=== PATIENT | female | born 1990 | race Asian ===

== ENCOUNTER 2016-11-08 19:46 | Emergency (ER) | payer OTHER ==
[2016-11-08 20:03] VITALS: BP 124/80; PULSE 67; TEMP 98; BMI 26.6
--- NOTE | 2016-11-08 21:31 | PDOC ---
History of Present Illness - General Chief Complaint: Eye Problem Stated Complaint: EYE PROBLEM Time Seen by Provider: 11/08/16 21:08 History Source: Patient - History of Present Illness Timing/Duration: other (yesterday) Severity: mild Associated Symptoms: denies: headaches Past History - Past Medical History Allergies/Adverse Reactions: Allergies Allergy/AdvReac Type Severity Reaction Status Date / Time No Known Allergies Allergy Verified 11/08/16 19:57 Home Medications: Ambulatory Orders NK [No Known Home Medication] 11/17/15 - Surgical History Appendectomy: Yes - Psycho/Social/Smoking Cessation Hx Anxiety: No Suicidal Ideation: No Smoking History: Never smoked Hx Alcohol Use: No Drug/Substance Use Hx: No Substance Use Type: None Review of Systems - Review of Systems HEENTM: No: Eye Pain, Blurred Vision, Tearing *Physical Exam - Vital Signs Last Vital Signs Temp Pulse Resp BP Pulse Ox 98 F 67 16 124/80 98 11/08/16 19:57 11/08/16 19:57 11/08/16 19:57 11/08/16 19:57 11/08/16 19:57 - Physical Exam General Appearance: Yes: Appropriately Dressed. No: Apparent Distress HEENT: positive: Normal Voice, Other (contusion to lower lid of R eye w/ small area of subcinj hemorrhage to lateral cathus of R eye, no fb on lid eversion adn no uptake on patrick lamp, EOMI, no facial swelling/crepitus/stepoffs). negative: Scleral Icterus (R), Scleral Icterus (L) Respiratory/Chest: negative: Respiratory Distress Integumentary: positive: Dry, Warm Neurologic: positive: Fully Oriented, Alert, Normal Mood/Affect Medical Decision Making - Medical Decision Making 11/08/16 21:28 26-year-old female, no significant history, here with right eye injury after basketball hit patient in the face yesterday. No significant eye pain, photophobia, tearing, or blurry vision. See exam Minor eye injury +contusion to lower lid w/ minimal subconj hemorrhage, no uptake on slit lamp No e/o serious injuries, i.e blow out fx, etc -Dc w/ reassurance 11/08/16 21:31 *DC/Admit/Observation/Transfer Diagnosis at time of Disposition: Contusion, eyelid Qualifiers: Encounter type: initial encounter Laterality: right Qualified Code(s): S00.11XA - Contusion of right eyelid and periocular area, initial encounter Subconjunctival hemorrhage Qualifiers: Laterality: right Qualified Code(s): H11.31 - Conjunctival hemorrhage, right eye - Discharge Dispostion Disposition: HOME Condition at time of disposition: Good - Patient Instructions Printed Discharge Instructions: DI for Subconjunctival Hemorrhage
== END 2016-11-08 21:29 | disposition home or self-care (01) ==
LOC: JERFT 19:46 → JER 19:46 → JERFT 21:29
DX: S00.11XA Contusion of right eyelid and periocular area, initial encounter (principal); H11.31 Conjunctival hemorrhage, right eye; W21.05XA Struck by basketball, initial encounter; Y93.89 Activity, other specified; Y92.89 Other specified places as the place of occurrence of the external cause
CPT/HCPCS: 99281-25

== ENCOUNTER → 2016-12-09 | Day surgery (SDC) | payer OTHER | END | disposition home or self-care (01) | LOC: JRADIR 10:50 | PROVIDERS: ATTEND Obstetrics & Gynecology | PROC: BU08YZZ Plain Radiography of Uterus and Fallopian Tubes using Other Contrast (ICD-10-PCS; principal; 2016-12-09) | DX: N97.9 Female infertility, unspecified (principal); N92.6 Irregular menstruation, unspecified | CPT/HCPCS: 58340; 74740-TC; 76000-TC; 84703; Q9967 ==

== ENCOUNTER 2019-08-01 20:44 | Emergency (ER) | payer OTHER ==
--- NOTE | 2019-08-01 21:55 | PDOC ---
Rapid Medical Evaluation Time Seen by Provider: 08/01/19 21:49 Medical Evaluation: Allergies Allergy/AdvReac Type Severity Reaction Status Date / Time No Known Allergies Allergy Verified 11/08/16 19:57 08/01/19 21:50 Pt presents for evaluation of vaginal bleeding starting today. She notes there are small drops of bright red blood after she pees. Also endorses dysuria and frequency. Exam: deferred to provider Orders: labs, urine TVUS Pt to proceed to the ER for further evaluation Discharge Disposition - Diagnosis Vaginal bleeding affecting early - Referrals - Patient Instructions - Post Discharge Activity
[2019-08-01 21:59] VITALS: BP 120/63; PULSE 75; TEMP 97.4; BMI 31.3
--- NOTE | 2019-08-01 22:46 | PDOC ---
Attending Attestation - Resident Resident Name: BonifacioJess - ED Attending Attestation I have performed the following: I have examined & evaluated the patient, The case was reviewed & discussed with the resident, I agree w/resident's findings & plan - HPI HPI: 08/02/19 01:14 see resident hpi - Physicial Exam PE: 08/02/19 01:14 see resident exam - Medical Decision Making 08/02/19 01:15 29-year-old gravid female with a drop of blood noted from vaginal area Ultrasound shows a viable 7-8-week IUP Exam consistent with candidal vaginitis Will DC on topical Mycelex, patient states that she would like to go home, she is sure that her blood type is O+ Type and screen has been sent anyway for documentation
--- NOTE | 2019-08-01 23:04 | PDOC ---
History of Present Illness - General Chief Complaint: Hematuria Stated Complaint: 9 WK MD/VAGINAL BLEEDING Time Seen by Provider: 08/01/19 21:49 - History of Present Illness Initial Comments: Melani Patterson is a 29yo woman with a PMH of irregular menstruation, currently 9wks by LMP (06/02/19) who presents reporting that she saw blood while urinating today. She has not had any continued bleeding and has not had any spotting previously. She additionally reports increased vaginal discharge, vaginal itching, and burning with urination. Ms Adame endorses mild low back soreness and occasional low abdominal cramping, but this has not changed in intensity, quality, or frequency today. She states that her was confirmed by her PMD, and she has an appointment with Dr Aleman set up for next week. Past History - Past Medical History Allergies/Adverse Reactions: Allergies Allergy/AdvReac Type Severity Reaction Status Date / Time No Known Allergies Allergy Verified 11/08/16 19:57 Home Medications: Ambulatory Orders Miconazole Nitrate [Monistat-7] 100 mg PV HS #7 supp.vag 08/02/19 COPD: No - Surgical History Appendectomy: Yes - Psycho Social/Smoking Cessation Hx Smoking History: Never smoked Hx Alcohol Use: No Drug/Substance Use Hx: No Substance Use Type: None Review of Systems - Review of Systems Comments:: General: No fevers, no chills, no weight or appetite change, no malaise HEENT: No changes in vision, no changes in hearing, no congestion, no sore throat CV: No chest pain, no palpitations, no LE edema Pulm: No SOB, no cough, no wheezing GI: No nausea or vomiting, no change in bowel habits, no melena : See HPI Musc: No back pain, no joint swelling, no recent injury Skin: No rash, no lesions, no erythema Endo: No excessive thirst, no heat/cold intolerance Heme: No unusual bruising or bleeding, no swollen glands Neuro: No syncope, no numbness/tingling, no focal weakness Vasc: No claudication Psych: No recent change in mood, no SI or HI *Physical Exam - Vital Signs Last Vital Signs Temp Pulse Resp BP Pulse Ox 97.4 F L 75 18 120/63 100 08/01/19 21:52 08/01/19 21:52 08/01/19 21:52 08/01/19 21:52 08/01/19 21:52 - Physical Exam General: Comfortable, no acute distress HEENT: PERRL, EOMI, MMM, voice normal, normal neck ROM Cards: RRR, no murmur appreciated Pulm: Comfortable on room air, clear to auscultation bilaterally Abd: Soft, nontender, nondistended : Normal external genitalia. No bleeding or lesions noted. Thick white discharge in vaginal canal, no bleeding appreciated. No lesions or abrasions. No CMT or adnexal tenderness. Os closed. Ext: Atraumatic. No LE edema. ROM intact. WWP Skin: Normal color, no rashes or lesions Neuro: A&Ox3, CN grossly intact, normal speech, motor/sensory grossly intact and symmetric Psych: Mood appropriate to situation ED Treatment Course - LABORATORY CBC & Chemistry Diagram: 08/01/19 23:30 08/01/19 23:30 Medical Decision Making - Medical Decision Making 08/01/19 23:03 Melani Patterson is a 29yo woman with a PMH of irregular menstruation, currently 9wks by LMP (06/02/19) who presents with vaginal spotting today when urinating, vaginal discharge, itching, and burning with urination. - Ddx includes normal , threatened v inevitable v complete , UTI, yeast infection v BV v other vaginal infection - CBC, CMP, bHCG, T&S, UA, UCx - TVUS 08/02/19 00:27 - US completed. Shows live IUP measuring 7w5d by CRL, FHR 165. Official read pending - UA negative for UTI - Will treat for yeast infection - Remainder of labs not resulted 08/02/19 01:06 - Pt requesting to be discharged home. States blood type is O+ - Will discharge home, but will verify blood type when resulted. Pt understands that she may be called to come back to the ED for rhogam if rh negative. She will follow up with OB next week. Discussed with Dr Yuni Valdovinos PGY2 Discharge - Discharge Information Problems reviewed: Yes Clinical Impression/Diagnosis: Vaginal bleeding affecting early Condition: Stable Disposition: HOME - Admission No - Additional Discharge Information Prescriptions: Miconazole Nitrate [Monistat-7] 100 mg PV HS #7 supp.vag - Follow up/Referral Referrals: Maine Aleman MD [Staff Physician] - - Patient Discharge Instructions Patient Printed Discharge Instructions: DI for Vaginal Bleeding During , DI for -- Discomforts and Remedies Additional Instructions: Discharge Instructions: You were seen in the emergency department for vaginal bleeding during . You had blood tests and an ultrasound. Your ultrasound showed a normal measuring 7 weeks 5 days. You were diagnosed with a yeast infection and prescribed a topical medication. Home Care: - Take vitamins daily - Use the topical cream for your yeast infection. It should be used for 7 days as directed - You may use 650mg acetaminophen (Tylenol) every 6-8 hours as needed for pain. - Follow up with Dr Aleman as scheduled - Seek immediate medical care for worsening symptoms, heavy vaginal bleeding, severe abdominal or back pain, difficulty breathing, or any other medical emergency. - Post Discharge Activity
[2019-08-01 23:58] LABS: PH,URINE 5.5 (5.0-8.0); URINE APPEARANCE CLEAR; URINE BILIRUBIN NEGATIVE (NEGATIVE); URINE COLOR YELLOW; URINE GLUCOSE (UA) NEGATIVE (NEGATIVE); URINE KETONE NEGATIVE (NEGATIVE); URINE LEUK ESTERASE NEGATIVE (NEGATIVE); URINE NITRITE NEGATIVE (NEGATIVE); URINE PROTEIN NEGATIVE (NEGATIVE); URINE UROBILINOGEN 0.2 mg/dL (0.2-1.0)
[2019-08-02 00:36] LABS: BASO % 0.9 % (0-2.0); EOS % 1.1 % (0-4.5); HEMATOCRIT 35.5 % (32.4-45.2); HEMOGLOBIN 11.9 GM/dL (10.7-15.3); LYMPH % 29.3 % (8-40); MCH 29.1 pg (25.7-33.7); MCHC 33.4 g/dl (32.0-36.0); MEAN CELL VOLUME 87.1 fl (80-96); MEAN PLT VOLUME 9.3 fl (7.5-11.1); MONO % 7.2 % (3.8-10.2); NEUT % 61.5 % (42.8-82.8); PLATELET COUNT 309 K/MM3 (134-434); RBC 4.08 M/mm3 (3.60-5.2); RDW 12.6 % (11.6-15.6); WHITE BLOOD COUNT 13.5 K/mm3 (4.0-10.0)
[2019-08-02 01:13] LABS: ALBUMIN 3.7 g/dl (3.4-5.0); BILIRUBIN,TOTAL 0.5 mg/dL (0.2-1); BLOOD UREA NITROGEN 6.9 mg/dL (7-18); CALCIUM 9.2 mg/dL (8.5-10.1); CREATININE 0.5 mg/dL (0.55-1.3); POTASSIUM 4.3 mmol/L (3.5-5.1); TOT PROT 7.4 g/dl (6.4-8.2)
== END 2019-08-02 01:15 | disposition home or self-care (01) ==
LOC: JER 20:44
DX: O26.891 Other specified pregnancy related conditions, first trimester (principal); Z3A.09 9 weeks gestation of pregnancy; N93.9 Abnormal uterine and vaginal bleeding, unspecified
CPT/HCPCS: 36415; 76817-TC; 80053; 81003; 84702; 85025; 86850; 86900; 86901; 87086; 99283-25

== ENCOUNTER 2020-03-05 08:30 | Inpatient (IN) | payer OTHER ==
[2020-03-05 09:55] VITALS: BMI 37.8
[2020-03-05] MEDS ORDERED: ELECTROLYTE-148 SOLN 1,000 ML IV SCH (10:00)
--- NOTE | 2020-03-05 11:07 | HP ---
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: Alzheimer's, CVA, Dementia, Migraine, Multiple Sclerosis, Peripheral Neuropathy, Parkinson's, Seizure, Syncope, TIA, Vertigo, Other Cardiovascular: No: AFIB, Aneurysm, Aortic Insufficiency, Aortic Stenosis, CAD, CHF, Deep Vein Thrombosis, HTN, Hyperlipdemia, MD, Mitral Insufficiency, Mitral Stenosis, Murmur, Pulmonary Hypertension, Other Pulmonary: No: Asthma, Bronchitis, Cancer, COPD, O2 Dependent, Pneumonia, Previously Intubated, Pulmonary Embolus, Pulmonary Fibrosis, Sleep Apnea, Other Gastrointestinal: No: Ascites, Cancer, Constipation, Crohn's Disease, Diverticulitis, Diverticulosis, Esophageal Varices, Gastritis, GERD, GI Bleed, Hemorrhoids, Hiatal Hernia, Inflamatory Bowel Disease, Irritable Bowel Disease, Pancreatitis, Peptic Ulcer Disease, Ulcerative Colitis, Other Hepatobiliary: No: Cirrhosis, Cholelithiasis, Cholecystitis, Choledocholithiasis, Hepatitis A, Hepatitis B, Hepatitis C, Other Renal/: No: Renal Failure, Renal Inusuff, BPH, Cancer, Hematuria, Hemodialysis, Neurogenic Bladder, Renal Calculi, UTI, Other Reproductive: No: Ectopic , Endometriosis, Fibroids, PID, Polycystic Ovary Syndrome, Postmenopausal, Other ...: 1 ...Para: 0 ...Term: 0 ...: 0 ...Spon : 0 ...Induced : 0 ...Living Children: 0 ...Multiple Gestation: 0 ...LMP: 05/31/19 ... Weeks Gestation by Dates: 39.6 ...EDC by Dates: 03/06/20 ...EDC by Sono: 03/12/20 Heme/Onc: No: Anemia, B12 Deficiency, Bleeding Disorder, Cancer, Current Chemotherapy, Current Radiation Therapy, Hemochromatosis, Hypercoaguable State, Myeloproliferative Synd, Sickle Cell Disease, Sickle Cell Trait, Thrombocytopenia, Other Infectious Disease: No: AIDS, C-Diff, Herpes Zoster, HIV, MRSA, STD's, Tuberculosis, VREF, Other Psych: No: Addictions, Anxiety, Bipolar, Depression, Panic, Psychosis, Schizophrenia, Other Musculoskeletal: No: Bursitis, Chronic low back pain, Hemiparesis, Hemiplegia, Osteoarthritis, Paraplegia, Other Rheumatology: No: Fibromyalgia, Gout, Lupus, Rheumatoid Arthritis, Sarcoidosis, Vasculitis, Other ENT: No: Allergic Rhinitis, Sinusitis, Other Endocrine: No: Houston's Disease, Maryann's Disease, Diabetes Insipidus, Diabetes Mellitus, Hyperparathyroidism, Hyperthyroidism, Hypothyroidism, Osteopenia, SIADH, Other Dermatology: No: Basal Cell, Cellulitis, Eczema, Melanoma, Psoriasis, Squamous Cell, Other - Past Surgical History Past Surgical History: Yes: Appendectomy Hx Myomectomy: No Hx Transabdominal Cerclage: No - Smoking History Smoking history: Never smoked Have you smoked in the past 12 months: No - Alcohol/Substance Use Hx Alcohol Use: No Home Medications - Allergies Allergies/Adverse Reactions: Allergies Allergy/AdvReac Type Severity Reaction Status Date / Time No Known Allergies Allergy Verified 11/08/16 19:57 - Home Medications Home Medications: Ambulatory Orders Miconazole Nitrate [Monistat-7] 100 mg PV HS #7 supp.vag 08/02/19 Home Medications (free text): PNV. Insulin Family Medical History Family History: Unremarkable Review of Systems - Review of Systems Constitutional: reports: No Symptoms Eyes: reports: No Symptoms HENT: reports: No Symptoms Neck: reports: No Symptoms Cardiovascular: reports: No Symptoms Respiratory: reports: No Symptoms Gastrointestinal: reports: No Symptoms Genitourinary: reports: No Symptoms Breasts: reports: No Symptoms Reported Musculoskeletal: reports: No Symptoms Integumentary: reports: No Symptoms Neurological: reports: No Symptoms Endocrine: reports: No Symptoms Hematology/Lymphatic: reports: No Symptoms Psychiatric: reports: No Symptoms Physical Exam - Maternity Vital Signs: Vital Signs Temperature 98.7 F 03/05/20 09:37 Pulse Rate 93 H 03/05/20 09:37 Respiratory Rate 20 03/05/20 09:37 Blood Pressure 128/75 03/05/20 09:37 O2 Sat by Pulse Oximetry (%) Constitutional: Yes: No Distress HENT: Yes: Atraumatic Neck: Yes: Supple Cardiovascular: Yes: Regular Rate and Rhythm - Abdominal Exam/OB Number of Fetuses: Single Presentation: Vertex Contractions: No Regularity: Irritability Monitor Mode: External Heart Rate (range): 125 Category: I Accelerations: Uniform Decelerations: None - Vaginal Exam/OB Vaginal Bleeding: No Speculum Exam: No Dilatation (cm): 1 Effacement (%): 80 Amniotic Membrane Status: Intact Presentation: Vertex/Position (sutures palpated, cervical balloon place appropriately (60/40)ml) Station: -3 - Physical Exam Musculoskeletal: Yes: WNL Extremities: Yes: WNL Edema: Yes Edema: LLE: 1+, RLE: 1+ Integumentary: Yes: WNL Deep Tendon Reflex Grade: Normal +2 ...Motor Strength: WNL Psychiatric: Yes: Alert, Oriented Imaging - Results Ultrasound: Report Reviewed Assessment/Plan 29 y/o G1 @ 39.0wks presenting for IOL due to A2GDM and suspected IUGR, FHT is reassuring, favorable cervix, GBS +. Patient was counseled regarding IOL including possible risks and complications. All questions answered and informed consent obtained -Continuous monitoring -Consider pitocin 1-2 hours following cervical linares pending contractions pattern -GBS prophylaxis once in labor -FSq6hr
[2020-03-05] MEDS ORDERED: AMPICILLIN - 2 GM in SODIUM CHLORIDE 100 ML IVPB ONE (11:12)
[2020-03-05 11:28] LABS: BASO % 0.4 % (0-2.0); EOS % 0.6 % (0-4.5); HEMATOCRIT 31.6 % (32.4-45.2); HEMOGLOBIN 10.8 GM/dL (10.7-15.3); INR 0.89 (0.83-1.09); LYMPH % 15.8 % (8-40); MCH 28.9 pg (25.7-33.7); MCHC 34.1 g/dl (32.0-36.0); MEAN CELL VOLUME 84.8 fl (80-96); MEAN PLT VOLUME 8.5 fl (7.5-11.1); MONO % 6.9 % (3.8-10.2); NEUT % 76.3 % (42.8-82.8); PLATELET COUNT 241 K/MM3 (134-434); PROTHROMBIN TIME (PATIENT) 10.5 SEC (9.7-13.0); RBC 3.73 M/mm3 (3.60-5.2); RDW 16.1 % (11.6-15.6); WHITE BLOOD COUNT 10.2 K/mm3 (4.0-10.0)
[2020-03-05 11:31] LABS: ACTIVATED PTT 28.4 SECONDS (25.2-36.5)
[2020-03-05 11:48] LABS: CALCIUM 9.1 mg/dL (8.5-10.1); CREATININE 0.5 mg/dL (0.55-1.3); POTASSIUM 4.1 mmol/L (3.5-5.1)
[2020-03-05] MEDS ORDERED: OXYTOCIN 30 UNITS in 0.9% NS 30 UNIT/500 ML INFUS.BAG IVPB ONE (11:54)
[2020-03-05] MEDS ORDERED: OXYTOCIN 30 UNITS in 0.9% NS 30 UNIT/500 ML INFUS.BAG IVPB SCH (12:00)
[2020-03-05] MEDS ORDERED: AMPICILLIN SODIUM 2 GM VIAL ONE (14:08)
--- NOTE | 2020-03-05 14:27 | PN ---
Progress Note, Labor Vaginal Exam #1 Labor Exam Date: 03/05/20 Labor Exam Time: 14:26 Heart Rate (range): Cat I Dilatation: 4-5 Effacement (%): 90 Presentation: Vertex/Position Station: -3 Remarks: AROM, clears IUPC placed Start Amp Continue pitocin Anticipate Chris Aleman MD
[2020-03-05] MEDS ORDERED: PCA PUMP NR ONE ×2 (17:51→21:25)
[2020-03-05] MEDS ORDERED: FENTANYL/BUPIVACAINE/NS/PF - PCEA - 50 ML DISP.SYRIN EP ONE ×2 (17:52→21:24)
[2020-03-05] MEDS ORDERED: AMPICILLIN SODIUM 1 GM VIAL ONE ×2 (18:01→22:54)
[2020-03-05] MEDS ORDERED: NALOXONE HCL 0.4 MG/ML VIAL IVPUSH PRN (18:30)
[2020-03-05] MEDS ORDERED: FENTANYL/BUPIVACAINE/NS/PF - PCEA - 50 ML DISP.SYRIN EP SCH (18:30)
[2020-03-05] MEDS: AMPICILLIN - 1 GM in SODIUM CHLORIDE 100 ML IVPB SCH ×2 (18:39→22:00)
--- NOTE | 2020-03-05 19:05 | PN ---
Progress Note, Labor Vaginal Exam #2 Labor Exam Date: 03/05/20 Labor Exam Time: 18:00 Heart Rate (range): Cat I Dilatation: 5 Effacement (%): 90 Amniotic Membrane Status: Ruptured Presentation: Vertex/Position Station: -2 Remarks: Unchanged Will cont to increase pitocin Epidural prn Chris Aleman MD
--- NOTE | 2020-03-05 20:40 | PN ---
Progress Note, Labor Vaginal Exam #3 Labor Exam Date: 03/05/20 Labor Exam Time: 20:39 Heart Rate (range): Cat I Dilatation: 6 Effacement (%): 100 Amniotic Membrane Status: Ruptured Presentation: Vertex/Position Station: -1 Remarks: Feeling pressure Some cervical change, good descent Continue pitocin Anticipate Chris Aleman MD
--- NOTE | 2020-03-05 22:33 | PN ---
Progress Note, Labor Vaginal Exam #4 Labor Exam Date: 03/05/20 Labor Exam Time: 22:15 Heart Rate (range): Cat I Dilatation: 9 Effacement (%): 100 Amniotic Membrane Status: Ruptured Presentation: Vertex/Position Station: 0 Remarks: Pt feeling pressure Good cervical change Anticipate Chris Aleman MD
--- NOTE | 2020-03-06 00:10 | PN ---
Progress Note, Labor Vaginal Exam #4 Labor Exam Date: 03/06/20 Labor Exam Time: 00:09 Heart Rate (range): Cat I Dilatation: 10 Effacement (%): 100 Amniotic Membrane Status: Ruptured Presentation: Vertex/Position Station: 0 Remarks: Complete Passive descent Start pushing when 1+ Anticipate Chris Aleman MD
[2020-03-06] MEDS ORDERED: FENTANYL/BUPIVACAINE/NS/PF - PCEA - 50 ML DISP.SYRIN EP ONE (00:44)
[2020-03-06] MEDS: AMPICILLIN - 1 GM in SODIUM CHLORIDE 100 ML IVPB SCH ×2 (02:00→10:05)
--- NOTE | 2020-03-06 02:05 | PN ---
Progress Note, Labor Vaginal Exam #6 Labor Exam Date: 03/06/20 Labor Exam Time: 02:05 Heart Rate (range): Cat I Dilatation: 10 Effacement (%): 100 Amniotic Membrane Status: Ruptured Presentation: Vertex/Position Station: +1 Remarks: Start pushing Anticipate RONEL Aleman MD
[2020-03-06] MEDS ORDERED: AMPICILLIN SODIUM 1 GM VIAL ONE (02:21)
[2020-03-06] MEDS ORDERED: BENZOCAINE 20% 57 GM BOTTLE TP PRN (05:14)
[2020-03-06] MEDS ORDERED: BISACODYL 10 MG SUPP.RECT RC PRN (05:14)
[2020-03-06] MEDS ORDERED: METHYLERGONOVINE MALEATE 0.2 MG/1 ML AMP IM PRN (05:14)
[2020-03-06] MEDS ORDERED: BENZOCAINE 28 GM HEMORRHOIDAL OINTMENT TP PRN (05:14)
[2020-03-06] MEDS ORDERED: WITCH HAZEL 50% (TUCKS) 40 PAD/JAR PAD TP PRN (05:14)
--- NOTE | 2020-03-06 05:14 | PN ---
Delivery - Delivery Vaginal Delivery: Vacuum Assist Type of Anesthesia: Local, Epidural Episiotomy/Laceration: Midline, 2nd degree EBL (cc): 250 Delivery, Single - Stages of Labor Placenta: Yes: Spontaneous - Condition of Infant Reliability Manager/Dietitian Teacher Present: Yes Gender: Male Position: Right, OA - [place] Feeding Plan Initial Plan: Exclusive throughout hospitalization Remarks - Remarks Remarks: Pt pushing for roughly 3 hours. Reporting fatigue and inability to continue further. SVE: C/C/3+, SHERRIE position. Kiwi vacuum applied after risks reviewed, pressure applied and with maternal efforts and two pushes, . Vacuum popped off. Not replaced. Mother pushed to deliver VMI from SHERRIE position over midline 2nd degree episiotomy. Spontaneous delivery of anterior shoulder and body. No nuchal. No meconium. placed on mother's abdomen, cord clamped and cut by . handed off to NICU staff. Weight pending and Apgars 8/9. Spontaneous delivery of intact placenta with 3VC. Fundus firm. Perineum inspected, midline episiotomy repaired with 3-0 chromic after additional 1% lidocaine injected. Hemostasis noted. Mother doing well. EBL 250ml. Maine Aleman MD
[2020-03-06] MEDS ORDERED: OXYTOCIN 20 UNITS in 0.9% NS 20 UNIT/1,000 ML INFUS.BAG IV SCH (05:15)
[2020-03-06] MEDS ORDERED: OXYTOCIN 20 UNITS in 0.9% NS 20 UNIT/1,000 ML INFUS.BAG IV ONE (06:03)
[2020-03-06] MEDS: IBUPROFEN 600 MG TABLET (FP) PO PRN ×2 (07:20→21:45)
[2020-03-06] MEDS ORDERED: IBUPROFEN 600 MG TABLET (FP) PO ONE (07:22)
[2020-03-06] MEDS: PRENATAL VITAMINS W/ FOLIC ACID TABLET (FP) PO SCH (10:07)
[2020-03-06] MEDS: FERROUS SO4 325 MG TABLET (FP) PO SCH ×3 (10:07→17:58)
[2020-03-06] MEDS: ACETAMINOPHEN 325 MG TABLET (FP) PO PRN (21:44)
[2020-03-07] MEDS ORDERED: MAG HYDROX/AL HYDROX/SIMETH 30 ML UNIT-DOSE CUP PO PRN (00:03)
--- NOTE | 2020-03-07 06:47 | DS ---
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 Vital Signs: Vital Signs Temperature 97.8 F 03/07/20 06:00 Pulse Rate 103 H 03/07/20 06:00 Respiratory Rate 18 03/07/20 06:00 Blood Pressure 130/78 03/07/20 06:00 O2 Sat by Pulse Oximetry (%) 98 03/06/20 02:45 Constitutional: Yes: Well Nourished, No Distress, Calm Eyes: Yes: WNL, Conjunctiva Clear, EOM Intact HENT: Yes: WNL, Atraumatic, Normocephalic Neck: Yes: WNL, Supple, Trachea Midline Cardiovascular: Yes: WNL, Regular Rate and Rhythm Respiratory: Yes: WNL, Regular, CTA Bilaterally Gastrointestinal: Yes: WNL ...Rectal Exam: Yes: WNL Renal/: Yes: WNL ....Post : Yes: Uterus firm, Uterus non-tender, Slight lochia rubra Breast(s): Yes: WNL Musculoskeletal: Yes: WNL Extremities: Yes: WNL Edema: No Integumentary: Yes: WNL Neurological: Yes: WNL, Alert, Oriented ...Motor Strength: WNL Psychiatric: Yes: WNL, Alert, Oriented Labs: CBC, BMP 03/05/20 11:01 03/05/20 11:01 Delivery - Delivery Vaginal Delivery: Spontaneous, Vacuum Assist Type of Anesthesia: Epidural Episiotomy/Laceration: Midline, 2nd degree EBL (cc): 250 Delivery, Single - Stages of Labor Date 1st Stage Initiatied: 03/05/20 Time 1st Stage Initiated: 14:15 Date 2nd Stage Initiated: 03/06/20 Time 2nd Stage Initiated: 04:00 Date of Delivery: 03/06/20 Time of Delivery: 04:56 Time Placenta Delivered: 05:00 Placenta: Yes: Spontaneous - Condition of Shoe Cobbler/Yarn Preparation Supervisor Present: Yes Name: Aranza Zuniga Gender: Male Weight: 5 lb 12 oz Position: Right, OA Total Hours ROM (Hrs/Mins): 14 HOURS/ 45 MINUTES - 1 Minute Total Score: 8 5 Minutes Total Score: 9 - [place] Feeding Plan Initial Plan: Exclusive throughout hospitalization Discharge Summary Problems reviewed: Yes Reason For Visit: INDUCTION OF LABOR Procedures: Principal: Hospital Course: no complication Plan of Treatment: follow up advanced surgical hospital care 4 weeks Condition: Good - Instructions Diet, Activity, Other Instructions: Regular Diet, but please moderate your carbohydrate intake Follow up with Dr. Aleman in 4 weeks for your visit Referrals: Maine Aleman MD [Staff Physician] - Disposition: HOME - Home Medications Comprehensive Discharge Medication List: Ambulatory Orders Insulin NPH 24 unit SQ HS 03/05/20 One Tablet 1 tab PO DAILY 03/05/20 Breast Pump 1 each MC 5XD 30 Days #1 each 03/06/20 Ferrous Sulfate [Feosol] 325 mg PO DAILY #30 tablet 03/06/20 Ibuprofen 600 mg PO Q6H PRN #30 tablet 03/06/20
[2020-03-07 08:24] LABS: BASO % 0.3 % (0-2.0); EOS % 0.8 % (0-4.5); HEMATOCRIT 23.8 % (32.4-45.2); HEMOGLOBIN 7.9 GM/dL (10.7-15.3); LYMPH % 19.4 % (8-40); MCH 28.6 pg (25.7-33.7); MCHC 33.4 g/dl (32.0-36.0); MEAN CELL VOLUME 85.7 fl (80-96); MEAN PLT VOLUME 8.1 fl (7.5-11.1); MONO % 6.4 % (3.8-10.2); NEUT % 73.1 % (42.8-82.8); PLATELET COUNT 191 K/MM3 (134-434); RBC 2.78 M/mm3 (3.60-5.2); RDW 16.3 % (11.6-15.6); WHITE BLOOD COUNT 12.5 K/mm3 (4.0-10.0)
[2020-03-07] MEDS: FERROUS SO4 325 MG TABLET (FP) PO SCH ×3 (08:55→17:40)
[2020-03-07] MEDS: PRENATAL VITAMINS W/ FOLIC ACID TABLET (FP) PO SCH (09:02)
[2020-03-07] MEDS ORDERED: DIPHTH,PERTUSS(ACELL),TET 0.5 ML DISP.SYRIN IM ONE (10:00)
[2020-03-07] MEDS: IBUPROFEN 600 MG TABLET (FP) PO PRN (14:38)
[2020-03-07] MEDS: ACETAMINOPHEN 325 MG TABLET (FP) PO PRN (14:39)
[2020-03-07] MEDS ORDERED: SENNOSIDES/DOCUSATE COMBO (SENNA PLUS) TABLET (UD) PO PRN (22:00)
[2020-03-08] MEDS: ACETAMINOPHEN 325 MG TABLET (FP) PO PRN ×2 (01:54→06:12)
[2020-03-08] MEDS: IBUPROFEN 600 MG TABLET (FP) PO PRN ×2 (01:55→06:13)
--- NOTE | 2020-03-08 07:59 | PN ---
Post Progress Note - Subjective Subjective: Patient discharged yesterday and stay due to baby. She is doing well and reports no complaints Post Day: 2 Type of Delivery: Vacuum Assist Vag Del Vital Signs: Vital Signs Temperature 98.1 F 03/07/20 22:00 Pulse Rate 107 H 03/07/20 22:00 Respiratory Rate 18 03/07/20 22:00 Blood Pressure 133/76 03/07/20 22:00 O2 Sat by Pulse Oximetry (%) 98 03/06/20 02:45 Uterus: Yes: Fundus Firm Abdomen/GI: Yes: Abdomen soft Extremities: Yes: Calves non-tender - Labs Labs: CBC WBC 12.5 K/mm3 (4.0-10.0) H 03/07/20 07:15 RBC 2.78 M/mm3 (3.60-5.2) L 03/07/20 07:15 Hgb 7.9 GM/dL (10.7-15.3) L 03/07/20 07:15 Hct 23.8 % (32.4-45.2) L D 03/07/20 07:15 MCV 85.7 fl (80-96) 03/07/20 07:15 MCH 28.6 pg (25.7-33.7) 03/07/20 07:15 MCHC 33.4 g/dl (32.0-36.0) 03/07/20 07:15 RDW 16.3 % (11.6-15.6) H 03/07/20 07:15 Plt Count 191 K/MM3 (134-434) D 03/07/20 07:15 MPV 8.1 fl (7.5-11.1) 03/07/20 07:15 Absolute Neuts (auto) 9.1 K/mm3 (1.5-8.0) H 03/07/20 07:15 Neutrophils % 73.1 % (42.8-82.8) 03/07/20 07:15 Lymphocytes % 19.4 % (8-40) D 03/07/20 07:15 Monocytes % 6.4 % (3.8-10.2) 03/07/20 07:15 Eosinophils % 0.8 % (0-4.5) 03/07/20 07:15 Basophils % 0.3 % (0-2.0) 03/07/20 07:15 Nucleated RBC % 0 % (0-0) 03/07/20 07:15 Assessment/Plan Patient is doing well, ready for discharge, requested circumcision, PP precautions discussed
[2020-03-08] MEDS: FERROUS SO4 325 MG TABLET (FP) PO SCH ×2 (08:42→12:40)
[2020-03-08] MEDS: PRENATAL VITAMINS W/ FOLIC ACID TABLET (FP) PO SCH (10:22)
[2020-03-08 11:18] VITALS: PULSE 93; TEMP 99
[2020-03-08 11:38] VITALS: BP 114/77
== END 2020-03-08 13:00 | disposition home or self-care (01) | DRG 560 ==
LOC: JLDR 08:30 → J3W 03-06 08:03
PROVIDERS: ADMIT Obstetrics & Gynecology; ATTEND Obstetrics & Gynecology
PROC: 10907ZC Drainage of Amniotic Fluid, Therapeutic from Products of Conception, Via Natural or Artificial Opening (ICD-10-PCS; 2020-03-05)
PROC: 3E033VJ Introduction of Other Hormone into Peripheral Vein, Percutaneous Approach (ICD-10-PCS; 2020-03-05)
PROC: 10H07YZ Insertion of Other Device into Products of Conception, Via Natural or Artificial Opening (ICD-10-PCS; 2020-03-05)
PROC: 10D07Z6 Extraction of Products of Conception, Vacuum, Via Natural or Artificial Opening (ICD-10-PCS; principal; 2020-03-06)
PROC: 0W8NXZZ Division of Female Perineum, External Approach (ICD-10-PCS; 2020-03-06)
DX: O24.424 Gestational diabetes mellitus in childbirth, insulin controlled (principal); O36.5930 Maternal care for other known or suspected poor fetal growth, third trimester, not applicable or unspecified; O70.1 Second degree perineal laceration during delivery; O99.824 Streptococcus B carrier state complicating childbirth; Z3A.39 39 weeks gestation of pregnancy; Z37.0 Single live birth; Z79.4 Long term (current) use of insulin
CPT/HCPCS: 36415; 59409; 80048; 82962; 85025; 85610; 85730; 86780; 86850; 86900; 86901; 87389; 90715

== ENCOUNTER 2023-07-14 14:17 | Emergency (ER) | payer OTHER ==
[2023-07-14] MEDS ORDERED: DEXAMETHASONE LIQUID 0.5 MG/5 ML PO ONE (15:11)
[2023-07-14] MEDS ORDERED: ALBUTEROL SO4 2.5/IPRATROPIUM 0.5 INH SOL 3 ML VIAL.NEB. NEB ONE (15:15)
[2023-07-14] MEDS ORDERED: DEXAMETHASONE SOD PHOSPHATE 10 MG/1 ML VIAL ONE (15:15)
[2023-07-14] MEDS ORDERED: guaiFENesin 200 MG/10 ML 10 ML UNIT-DOSE CUPS PO ONE (15:42)
[2023-07-14] MEDS: ALBUTEROL SO4 2.5/IPRATROPIUM 0.5 INH SOL 3 ML VIAL.NEB. NEB SCH ×3 (16:15→16:45)
[2023-07-14 17:03] VITALS: RESP 20; TEMP 98.9
[2023-07-14 17:10] VITALS: BP 162/126; PULSE 104; BMI 37.8
[2023-07-14] MEDS ORDERED: guaiFENesin/D-METHORPHAN HB 10 ML UNIT-DOSE CUPS ONE (17:35)
== END 2023-07-14 17:51 | disposition home or self-care (01) ==
LOC: FER 14:17
PROC: 3E0F7GC Introduction of Other Therapeutic Substance into Respiratory Tract, Via Natural or Artificial Opening (ICD-10-PCS; principal; 2023-07-14)
DX: R05.3 Chronic cough (principal); J06.9 Acute upper respiratory infection, unspecified; I10 Essential (primary) hypertension; R09.81 Nasal congestion; J02.9 Acute pharyngitis, unspecified; R07.89 Other chest pain; Z20.822 Contact with and (suspected) exposure to COVID-19
CPT/HCPCS: 0241U-QW; 71046-TC-FY; 99284-25